=== PATIENT | female | born 1955 | race Hispanic/Latino ===

== ENCOUNTER 2018-12-01 13:24 | Observation (INO) | payer OTHER ==
[~2018-12-01] VITALS: Ht 154.9 cm; Wt 68.5 kg
[2018-12-01 13:36] LABS: BASOPHILS % (AUTO) 1.1 % (0.0-5.0); EOSINOPHILS % (AUTO) 0.7 % (0.0-8.0); HEMATOCRIT 40.4 % (36-48); LYMPHOCYTES % (AUTO) 29.1 % (21.0-51.0); MEAN CORPUSCULAR HEMOGLOBIN 29.2 pg (27.0-33.0); MEAN CORPUSCULAR HGB CONC 33.9 g/dL (32.0-36.0); MEAN CORPUSCULAR VOLUME 86.2 fL (79-99); MONOCYTES % (AUTO) 9.3 % (3.0-13.0); NEUTROPHILS % (AUTO) 59.8 % (40.0-77.0); PLATELET COUNT (AUTO) 311 K/uL (130-400); RED BLOOD CELL COUNT(AUTO) 4.68 MIL/uL (4.00-5.50); WHITE BLOOD COUNT (AUTO) 9.4 K/uL (4.8-10.8)
[2018-12-01 13:44] LABS: CREATININE 0.7 mg/dL (0.5-1.5); POTASSIUM 3.5 mmol/L (3.5-5.1)
[2018-12-01 13:49] LABS: ALBUMIN 3.5 g/dL (3.5-5.0); BILIRUBIN,TOTAL 0.4 mg/dL (0.2-1.0); TOTAL PROTEIN, SERUM 8.2 g/dL (6.0-8.3)
[2018-12-01 13:56] LABS: INR 0.9 (0.85-1.15); PARTIAL THROMBOPLASTIN TIME 30.3 SEC (26.3-35.5); PROTHROMBIN TIME 9.5 SEC (9.6-11.6)
[2018-12-01] MEDS ORDERED: NITROGLYCERIN 1GM/1 INCH PACKET TD ONE (13:57)
[2018-12-01] MEDS ORDERED: ACETAMINOPHEN EXTRA STRENGTH 500 MG TABLET ONE (13:57)
[2018-12-01] MEDS ORDERED: ASPIRIN 325 MG TABLET ONE (13:57)
[2018-12-01 19:18] VITALS: BP 115/62
[2018-12-01] MEDS: ACETAMINOPHEN 325 MG TAB PO PRN (22:01)
[2018-12-01 22:22] LABS: CREATINE KINASE, TOTAL 84 U/L (21-232); MYOGLOBIN 24 ng/mL (10-92); TROPONIN I < 0.04 ng/mL (0.00-0.06)
[2018-12-02 00:15] VITALS: BP 125/78
[2018-12-02 04:35] VITALS: BP 124/83
[2018-12-02 05:27] LABS: CREATINE KINASE, TOTAL 79 U/L (21-232); MYOGLOBIN 24 ng/mL (10-92); TROPONIN I < 0.04 ng/mL (0.00-0.06)
[2018-12-02] MEDS: ACETAMINOPHEN 325 MG TAB PO PRN ×2 (07:28→22:34)
[2018-12-02 08:00] VITALS: BP 151/94
[2018-12-02 11:56] VITALS: BP 134/92
--- NOTE | 2018-12-02 12:19 | NUR ---
DCP CM met with pt discussed dc plans. Pt is independent prior to admission, lives at home with spouse. Denies any equipments/services. Pt feels safe to go back home, still drives and works, spouse able to assist with transportation and needs as necessary. Dc plan to home once stable. CM to cont to follow up. Addendum: 12/02/18 at 1220 by CHERIE AQUINO LVN CM Amended: Links added.
[2018-12-02] MEDS ORDERED: CLONIDINE HCL 0.1 MG TABLET PO PRN (13:15)
[2018-12-02 16:00] VITALS: BP 156/89
[2018-12-02 19:18] VITALS: BP 146/77
[2018-12-02 22:28] LABS: APPEARANCE,URINE Clear (CLEAR); BILIRUBIN,URINE Negative (NEGATIVE); COLOR,URINE Yellow (YELLOW); GLUCOSE, URINE (UA) Negative (NEGATIVE); KETONES,URINE Negative (NEGATIVE); LEUKOCYTE ESTERASE ,URINE Trace (NEGATIVE); NITRATE,URINE Negative (NEGATIVE); OCCULT BLOOD,URINE Trace (NEGATIVE); PH,URINE 7.5 (5.0-8.0); PROTEIN,URINE Negative (NEGATIVE)
[2018-12-02 22:56] LABS: BACTERIA,URINE Moderate /HPF (None Seen); MUCUS,URINE None Seen LPF (None Seen); SQUAMOUS EPITHELIAL CELL,UR Moderate /HPF (0-2)
[2018-12-03 00:20] VITALS: BP 113/76
[2018-12-03 04:05] VITALS: BP 134/91
[2018-12-03 08:00] VITALS: BP 145/85
--- NOTE | 2018-12-03 10:43 | NUR ---
PT UPDATE Pt AOX3, STABLE VS, Pt AT THIS TIME GONE FOR A LEXISCAN
[2018-12-03] MEDS ORDERED: REGADENOSON 0.4 MG/5 ML PF SYG IVP SCH (11:45)
[2018-12-03 16:00] VITALS: BP 131/70
[2018-12-03 19:34] VITALS: BP 139/72
[2018-12-04 00:09] VITALS: BP 113/81
[2018-12-04 08:00] VITALS: BP 110/63
--- NOTE | 2018-12-04 10:10 | NUR ---
Pt D/C UPDATE Pt D/JEANNETTE PENDING LEXISCAN RESULT, Pt TO FOLLOW UP O/P FOR RESULT, DR. COUGHLIN NOTIFIED OF URINE CULTURE RESULT SHOWING MODERATE BACTERIA, Pt AFEBRILE THROUGHOUT THE NIGHT AND THIS MORNING, ODER TO D/C HOME.
--- NOTE | 2018-12-04 12:45 | NUR ---
Pt D/C HOME AT THIS TIME, D/C INSTRUCTION GIVEN, Pt VERBALIZED UNDERSTANDING, PROTONIX 40MG QD CALLED IN AT [facility], Pt INSTRUCTED TO PLATEMAN PRESCRIPTION AFTER 1300 TODAY, ALL QUESTIONS AND CONCERNS ANSWERED, IV OUT, NO COMPLICATION NOTED, Pt SAFELY DISCHARGE HOME.
[2018-12-05] MEDS ORDERED: PANTOPRAZOLE SODIUM 40 MG TABLET.DR PO SCH (09:00)
== END 2018-12-04 12:35 | disposition home or self-care (01) ==
LOC: EDH 13:24 → EDHIP 15:12 → 3CH 18:45
PROVIDERS: ADMIT Internal Medicine; ATTEND Internal Medicine
DX: R07.89 Other chest pain (principal); Z86.73 Personal history of transient ischemic attack (TIA), and cerebral infarction without residual deficits; R94.5 Abnormal results of liver function studies; Z79.899 Other long term (current) drug therapy
CPT/HCPCS: 36415 ×2; 70551; 71045; 78452; 80053; 81001; 82550 ×2; 83874 ×2; 84484 ×3; 85025; 85610; 85730; 87088; 93005; 93017; 99284; A9500 ×2; G0378 ×69; J2785; 96374